=== PATIENT | female | born 2000 | race Two or more races ===

== ENCOUNTER 2024-11-22 16:55 | Observation (INO) | payer MEDICAID, OTHER ==
[~2024-11-22] VITALS: Ht 162.6 cm; Wt 63.5 kg
[2024-11-22] MEDS ORDERED: LACTATED RINGER'S 1,000 ML IV ONE (17:30)
[2024-11-22] MEDS: KETOROLAC TROMETH 30 MG/ML 1ML VIAL IV PRN (17:33)
--- NOTE | 2024-11-22 17:38 | DVH ---
OB ULTRASOUND <14 WEEKS: HISTORY: R/O PLACENTA PREVIA/LOW LYING PLACENTA TECHNIQUE: Multiple real-time grayscale sonographic images of the pelvis with duplex doppler color fl ow. COMPARISON: None FINDINGS: Limited pelvic ultrasound performed for assessment of the cervix. Cervix is closed measuring 4.2 cm transabdominal. Placenta is anterior and clear of the internal loss by approximately 6.5 cm. IMPRESSION: Cervix is closed measuring 4.2 cm. Placenta is clear of the internal os.
--- NOTE | 2024-11-22 17:56 | DVH ---
RENAL ULTRASOUND History: Back and abdomial pain Comparison: None Technique: Multiple real-time sonographic images of the kidney and bladder were obtained in conjuncti on with Doppler imaging. Findings: The right kidney measures 10.8 cm and demonstrates moderate right hydronephrosis. No perinephric gregory a seen. The left kidney measures 13.1 cm and demonstrates moderate left hydronephrosis. No perinephric edema seen. The bilateral proximal ureters also appear dilated. Urinary bladder: Bladder postvoid residual 10 cc. Impression: Moderate bilateral hydronephrosis.
[2024-11-22] MEDS: ONDANSETRON HCL 4 MG/2 ML VIAL IV ONE (18:00)
[2024-11-22 18:37] LABS: Hematocrit 35.0 % (36.0-46.0); Hemoglobin 12.1 g/dL (12.2-16.2); Mean Corpuscular Hemoglobin 30.8 pg (28.0-32.0); Mean Corpuscular Volume 88.9 fL (80.0-100.0); Nucleated Red Blood Cells % 0.0 %
[2024-11-22 18:39] VITALS: BP 107/62; PULSE 90; RESP 16
[2024-11-22] MEDS: NALBUPHINE HCL 10 MG/1ml INJECTION IV PRN (18:39)
[2024-11-22 18:50] LABS: Albumin 3.9 g/dL (3.2-4.8); Alkaline Phosphatase 83 U/L (46-116); Anion Gap 15 (5-15); BUN/Creatinine Ratio 17.6 (10.0-20.0); Calcium 8.9 mg/dL (8.7-10.4); Chloride 105 mmol/L (98-107); Sodium 139 mmol/L (136-145); Total Protein 6.9 g/dL (5.7-8.2)
[2024-11-22 18:50] LABS: Urine Protein, UAD Negative (Negative)
[2024-11-22 18:51] LABS: Bilirubin, Total 0.4 mg/dL (0.2-1.0)
[2024-11-22 18:53] LABS: INR 0.99 (0.9-1.15); Partial Thromboplastin Time 25.1 SEC (24.5-34.5); Prothrombin Time 10.5 sec (9.3-11.8)
[2024-11-22 19:03] LABS: Amphetamine Screen, Urine Neg (NEGATIVE); Barbiturate Scree,Urine Neg (NEGATIVE); Benzodiazephine Screen, Urine Neg (NEGATIVE); Cannabinoid Screen, Urine Neg (NEGATIVE); Cocaine Screen, Urine Neg (NEGATIVE); Opiate Scree,Urine Neg (NEGATIVE); Phencyclidine Screen, Urine Neg (NEGATIVE)
[2024-11-22 19:03] LABS: Alanine Aminotransferase < 9 U/L (7-40); Blood Urea Nitrogen 9 mg/dL (9-23); Carbon Dioxide 19 mmol/L (20-31); Glucose 73 mg/dL (74-106); Potassium 3.2 mmol/L (3.5-5.1)
--- NOTE | 2024-11-22 20:25 | DVH ---
INDICATION: heart rate TECHNIQUE: Multiple real-time grayscale transabdominal sonographic images along with color and duplex Doppler of the uterus and ovaries were obtained. COMPARISON: US OBSTERICAL LIMITED on DOS: 11/22/24 FINDINGS: heart rate 127 beats per minute. Subsequent color and duplex Doppler interrogation of the ovaries demonstrated symmetric vascular flow to both ovaries, though this does not exclude the possibility of torsion due to the dual blood suppl y. IMPRESSION: 1. heart rate 127 beats per minute.
--- NOTE | 2024-11-24 16:16 | DVHDS2 ---
Physician Discharge Progress N Final Diagnosis: 26wks flank pain,uti Operations or Procedures: Operations or Procedures nst,sono Condition on Discharge: Good Disposition: Home Discharge Instructions: Diet: Regular Activity: No Restrictions, As Tolerated Medications: macrobid Follow Up Care: Specialist: 3d Discharge Statement: "Patient was advised to return to the ER or call 911 if any headaches, dizziness, shortness of breath, chest pain, abdominal pain, bleeding, fevers, or worsening of medical condition. Patient was counseled about treatment plan, medications, possible side effects, patientverbalized understanding. All questions were answered to the best of my ability. This discharge took greater then 30 minutes in planning, reviewing documentat ion, counseling the patient, and discussing with other team members." Visit Coding OBGYN Date of Service: Nov 22, 2024 Billing Provider: CHIDI SPRAGUE DO [employer] Common Visit Codes: 73973-[id number] OBS CARE (HIGH) [employer] RECEIVER Procedure Codes: 43809-78- NON-STRESS TEST CHIDI SPRAGUE DO Nov 24, 2024 16:16
== END 2024-11-22 20:35 | disposition home or self-care (01) ==
LOC: EDBD 16:55 → LDRP 16:55
PROVIDERS: ADMIT Obstetrics & Gynecology; ATTEND Obstetrics & Gynecology
DX: O26.892 Other specified pregnancy related conditions, second trimester (principal); R10.9 Unspecified abdominal pain; O99.891 Other specified diseases and conditions complicating pregnancy; M54.9 Dorsalgia, unspecified; Z98.890 Other specified postprocedural states
CPT/HCPCS: 36415; 76775; 76815; 80053; 80307; 81001; 81002; 85025; 85610; 85730; 86850; 86900; 86901; 94760; 96374; 96375; G0378; J1885; J2300; J2405; 96360